=== PATIENT | male | born 1990 | race Caucasian/White ===

== ENCOUNTER 2023-01-01 11:43 | Outpatient (CLI) | payer OTHER, SELFPAY ==
[2023-01-01 11:33] LABS: Abs Immature Grans 0.01 10^3/uL (0.0-0.06); Absolute Basophil Count 0.05 10^3/uL (0.0-0.2); Absolute Eosinophil Count 0.12 10^3/uL (0.0-0.7); Absolute Lymphocyte Count 1.89 10^3/uL (1.2-3.4); Absolute Monocyte Count 0.51 10^3/uL (0.1-0.8); Basophils % 0.7; Eosinophils % 1.7; HCT 47.3 % (40.0-50.0); Immature Grans % 0.1; Lymphocytes % 26.7; MCH 29.9 pg (27.0-33.0); MCHC 33.8 % (32.0-36.0); MCV 88 fL (80-95); MPV 9.8 fL (8.0-11.0); Monocytes % 7.2; Neutrophils % 63.6; Platelet Count 230 10^3/uL (130-400); RBC 5.36 10^6/uL (4.36-5.78); RDW 11.7 % (11.8-14.1); RDW-SD 37.1 fL; WBC 7.08 10^3/uL (4.4-10.8)
[2023-01-01 11:58] LABS: ALT 20 U/L (16-63); AST 16 U/L (15-37); Albumin 4.2 g/dL (3.4-5.0); Alkaline Phosphatase 67 U/L (46-116); Anion Gap 6.6 mmol/L (3-11); BUN 17 mg/dL (7-18); CO2 28.4 mmol/L (21.0-32.0); CREATININE 1.3 mg/dL (0.70-1.30); Calculated LDL 87 mg/dL (<100); Chloride 102 mmol/L (98-107); Cholesterol 149 mg/dL (<200); Estimated GFR 74.85 (mL/min/1.73m2); Glucose 96 mg/dL (74-106); HDL Cholesterol 43 mg/dL (40-60); Potassium 3.9 mmol/L (3.5-5.1); Sodium 137 mmol/L (136-145); Total Protein 7.6 g/dL (6.4-8.2); Triglyceride 99 mg/dL (<150)
[2023-01-01 12:07] LABS: GGT 13 U/L (15-85)
[2023-01-01 12:16] LABS: C-Reactive Protein < 0.05 mg/dL (0.0-0.3)
== END 2023-01-01 11:44 | disposition home or self-care (01) ==
LOC: LBO 11:43
PROVIDERS: PCP Nurse Practitioner Family; Visit Provider Surgery
DX: K80.70 Calculus of gallbladder and bile duct without cholecystitis without obstruction (principal); R10.13 Epigastric pain
CPT/HCPCS: 36415; 80053; 80061; 82977; 85025; 86140

== ENCOUNTER → 2023-01-09 00:14 | Outpatient (CLI) | payer OTHER, SELFPAY ==
--- NOTE | 2023-01-09 07:15 | DI.MRI_ITS ---
Exam(s) MR ABDOMEN WO EXAM: MR ABDOMEN WO CLINICAL HISTORY: ? Gall stone in CBD,epigastric pain,r10/13 TECHNIQUE: Multiplanar multisequence MRI of the Abdomen was performed. COMPARISON: US US ABDOMEN LIMITED from 12/25/2022 FINDINGS: Liver: Unremarkable. Pancreas: Unremarkable. Gallbladder and Bile Ducts: No evidence of cholelithiasis. No biliary ductal dilatation or choledoch olithiasis is identified. Adrenals: Unremarkable. No evidence of an adrenal mass. Kidneys: Unremarkable. No suspicious renal mass or hydronephrosis. Spleen: Unremarkable. Bowel: Unremarkable. Aorta: Unremarkable. No aneurysmal dilatation. Soft Tissues: Unremarkable. Bone: Unremarkable. Lymph Nodes: Unremarkable. IMPRESSION: No evidence of cholelithiasis or choledocholithiasis. DATA REPOSITORY:
== END ==
PROVIDERS: PCP Nurse Practitioner Family; Visit Provider Physician Assistant
DX: R10.13 Epigastric pain (principal)
CPT/HCPCS: 74181

== ENCOUNTER 2024-05-17 13:18 | Emergency (ER) | payer OTHER, SELFPAY ==
[2024-05-17 13:24] VITALS: BP 140/88; PULSE 78; RESP 18; TEMP 36.6; O2SAT 98
--- NOTE | 2024-05-17 13:30 | DI.RAD_ITS ---
Exam(s) XR THUMB LT EXAM: XR THUMB LT CLINICAL HISTORY: L thumb injury. TECHNIQUE: 2D digital imaging was performed. Three views. COMPARISON: None. FINDINGS: BONES: No acute fracture is present. No bony destructive lesion is seen. JOINTS: No dislocation present. SOFT TISSUE: Normal. IMPRESSION: No evidence of acute fracture, dislocation, or subluxation. DATA REPOSITORY: RADIATION DOSE DELIVERED:
--- NOTE | 2024-05-17 13:33 | ED.GENADUL_ITS ---
Discharge Plan Disposition Patient Disposition: Home Condition: Stable Discharge Details Clinical Impression: Contusion of left thumb Primary Care Provider: None,None ED Provider: Julian Naranjo Home Meds and New Rx's Prescriptions: No Action No Known Home Meds Discharge Instructions Instructions: Minor Contusion ED Additional Instructions: You were seen in the emergency department for the contusion of your left thumb. Please rest, ice, compress and elevate the thumb often. Please use therapeutic dosing of Tylenol (acetamenophen) & Advil (ibuprofen) in an alternating fashion as follows: Take 1000mg of Tylenol every 6 hours without missing doses- that is 4 times per day. [place] in between the Tylenol dosings, take 400-600mg of Advil also on a 6 hour schedule, that is also 4 times per day. The daily maximum dosing of Tylenol is 4000mg, and the daily maximum dosing of Advil is 2400mg. This is safe to do for weeks. Please note that some common cold medications & prescription pain medications may contain acetamenophen and you need to read OTC drug labels and factor that in to maximum daily dosings. There is no fracture seen on your x-ray, it is likely that your fingernail will fall off from this injury, please keep the area clean and dry. Discharge Data Discharge Date/Time-TO BE ENTERED AT DEPARTURE: 05/17/24 15:00 HPI General Date/Time Provider Initiated Documentation: 05/17/24 13:31 . HPI Narrative: 33 year-old male presents to ED today by POV/ambulating with a chief complaint of L thumb injury on woodsplitter, crush injury, with subungual bruising and bleeding kerry-cuticle with onset earlier today. Quality described as painful thumb finger pad and nail, no radiation to complete numbness, lifting of nail, did have bleeding come out from all around the nail but no open wound. Severity is described as mild to moderate. Palliating factors include nothing specific attempted. Provoking factors include nothing specific. Patient is L-hand dominant. Patient not anticoagulated. Related Data Home Medications ?Medication ?Instructions ?Recorded ?Confirmed Unknown [No Known Home Meds] 05/17/24 05/17/24 Allergies Allergy/AdvReac Type Severity Reaction Status Date / Time No Known Allergies Allergy Unverified 05/17/24 13:26 General Stated Complaint: Orthopedic FUAD: 4 Review of Systems All systems reviewed & are unremarkable except as noted in HPI and below Exam Narrative Exam Narrative: GENERAL APPEARANCE: Well-nourished, non-toxic, awake and alert, atraumatic, no acute distress. SKIN: Warm, pink, dry, intact, without rashes/lesions/ulcerations. HEAD: Normocephalic, atraumatic, normal hair distribution for gender/age. EYES: Normal conjunctiva, no exudates on lids/lashes. ENT: Nares patent, no circumoral cyanosis, no facial swelling NECK: Supple, trachea midline, painless cervical ROM. LUNGS/CHEST: Non-labored respirations, normal A/P diameter, symmetrical expansion, no chest wall deformity HEART (CV/PV): Regular rate, L radial pulse 2+, no peripheral edema, no JVD. ABDOMEN: Soft, non-distended, no guarding. MSK: Normal ROM, no swelling/deformity to bilateral UEs or LEs, moving all extremities without weakness, no cyanosis, spine midline without tenderness, normal curvature, left distal thumb swelling with dried blood all around the nailbed and some subungual hematoma and mild redness to finger pad, sensation intact, brisk capillary refill in the distal finger pad, no other injury, no anatomical snuffbox tenderness NEURO: Mental Status AAOx4 - alert to person, place, time, events No facial droop, no forehead involvement. Motor: No focal weakness - strength 5/5 in bilateral UEs and LEs, proximal and distal, symmetric. Sensory: sensation intact to light touch globally. Gait normal: patient ambulated without ataxia into ED room. PSYCH: euthymic, cooperative, pleasant, appropriate speech Course Vital Signs Vital signs: Vital Signs Temperature 36.6 C 05/17/24 13:24 Pulse 78 05/17/24 13:24 Respiratory Rate 18 05/17/24 13:24 Blood Pressure 140/88 05/17/24 13:24 Pulse Oximetry 98 05/17/24 13:24 Temperature 36.6 C 05/17/24 13:24 Temperature Source Temporal Artery Scan 05/17/24 13:24 Pulse 78 05/17/24 13:24 Respiratory Rate 18 05/17/24 13:24 Blood Pressure 140/88 05/17/24 13:24 Blood Pressure Position Supine 05/17/24 13:24 Pulse Oximetry 98 05/17/24 13:24 Oxygen Delivery Method Room Air 05/17/24 13:24 Oxygen Flow Rate 0 05/17/24 13:24 Pain Level 5 05/17/24 13:24 Medical Decision Making This dictation utilizes [id number] dictation software and may contain unedited grammatical errors. 33 year-old male presents to ED today by POV/ambulating with a chief complaint of L thumb injury on woodsplitter, crush injury, with subungual bruising and bleeding kerry-cuticle with onset earlier today. Quality described as painful thumb finger pad and nail, no radiation to complete numbness, lifting of nail, did have bleeding come out from all around the nail but no open wound. Severity is described as mild to moderate. Palliating factors include nothing specific attempted. Provoking factors include nothing specific. Patient is L-hand dominant. Patients' medical history: Noncontributory. Family and social history: Noncontributory. Pertinent exam findings / vital signs include left distal thumb swelling with dried blood all around the nailbed and some subungual hematoma and mild redness to finger pad, sensation intact, brisk capillary refill in the distal finger pad, no other injury, no anatomical snuffbox tenderness. Differential / pathologies of concern include subungual hematoma, possible progression of felon, fracture. Diagnostic studies of: -XR L thumb-no acute fracture seen. Interventions of: -Recommend gentle compression, has already self decompressed pressure of subungual hematoma. ED Course/Assessment/Plan: 33-year-old male had his thumb crushed between a piece wooden wood splitter, as swelling to the distal finger tip, he did have a subungual hematoma but it looks like it has relieved some pressure with bleeding all around the nail cuticle, I discussed unlikely need for trephination at this time and that he should apply gentle compression and ice and elevate the area to relieve swelling and try to milk the swelling out of the thumb. Strict return criteria for increasing redness, complete numbness of thumb, severe increase in pain. Findings not consistent with need for trephination, fracture. Disposition of contusion of left thumb. Patient verbalized understanding of the plan and return to ED criteria and engaged in shared decision making. Medical Records Medical records reviewed: Yes I reviewed the patient's medical records. Imaging Data Radiologic Study: Attestation: I personally reviewed and interpreted this imaging study as follows: Imaging: X-Ray Radiologist's impression: EXAM: XR THUMB LT CLINICAL HISTORY: L thumb injury. TECHNIQUE: 2D digital imaging was performed. Three views. COMPARISON: None. FINDINGS: BONES: No acute fracture is present. No bony destructive lesion is seen. JOINTS: No dislocation present. SOFT TISSUE: Normal. IMPRESSION: No evidence of acute fracture, dislocation, or subluxation. Quality:SDOH Health Related Social Needs: No Data to Display PFSH All Active Problems (Updated 05/17/24 @ 14:38 by TIKI Bass) Contusion of left thumb (Acute) Cholelithiasis with choledocholithiasis (Acute) No gallstones in the the gallbladder on ultrasound Possible common bile duct stone with normal-sized bile duct Family History (Updated 02/09/23 @ 17:10 by Radha Rivas) Father Hyperlipidemia Diabetes Heart disease Hypertension Social History (Updated 02/09/23 @ 17:13 by Radha Rivas) Smoking/Tobacco Use Status: Never Smoking risk assessment performed?: Yes Alcohol Intake: current Alcohol Intake frequency: holidays/special occasions only Alcohol type: hard liquor Drug use: Never Substance use type: marijuana Caregiver/Support person: No Household members: none Housing: house Communication Needs: None Do you need help understanding health information?: Never Pets and animals: Yes Sexually active: Yes Do you think of yourself as: straight/heterosexual Current gender identity: male What is your relationship status?: never How often do you talk on the phone with friends or family?: twice per week How often do you get together with friends or relatives?: twice per week How often do you attend orthodox or orthodox services?: decline to answer Do you belong to any clubs or organized social groups?: yes Panel score (0-1 are the most socially isolated patients): 2 What type of physical activity do you participate in: walking and running Duration: 60-90 minutes/day Frequency: daily Special fox needs: No Seatbelt use: always Helmet use: Yes Drive intox or ride w/intox ambulance driver paramedic: No
[2024-05-17 15:00] VITALS: BP 128/80; PULSE 78; RESP 18; TEMP 36.6; O2SAT 97
== END 2024-05-17 15:00 | disposition home or self-care (01) ==
PROVIDERS: Emergency Provider Physician Assistant
DX: S60.012A Contusion of left thumb without damage to nail, initial encounter (principal); W23.0XXA Caught, crushed, jammed, or pinched between moving objects, initial encounter; Z18.33 Retained wood fragments
CPT/HCPCS: 99283; 73140